=== PATIENT | male | born 1960 | race Caucasian/White ===

== ENCOUNTER 2016-08-19 08:47 | Day surgery (SDC) | payer BC ==
[2016-08-19] VITALS (7 sets, daily range): BP systolic 117–141; BP diastolic 62–75
[~2016-08-19] VITALS: Ht 190.5 cm; Wt 104.3 kg
--- NOTE | 2016-08-19 06:26 | Anethesia Preoperative Eval ---
Anesthesia Pre-op PMH/ROS General Date of Evaluation: Aug 19, 2016 Time of Evaluation: 06:25 Anesthesiologist: jeremy Mallampati Score Class I : Soft palate, uvula, fauces, pillars visible Class II: Soft palate, uvula, fauces visible Class III: Soft palate, base of uvula visible Class IV: Only hard plate visible Mallampati Classification: Class II Surgeon: javier Diagnosis: abdominal pain Surgical Procedure: egd/colonoscopy Anesthesia History: none Family History: no anesthesia problems Allergies: Coded Allergies: No Known Allergies (Unverified , 08/18/16) Medications: see eMAR Past Medical History Gastrointestinal/Genitourinary: Reports: GERD Endocrine: Reports: DM, hypothyroidism Anesthesia Pre-op A/P Risk Assessment & Plan Assessment: abdominal pain Plan: egd/colonoscopy Status Change Before Surgery: No Pre-Antibiotics Drug: VINICIUS Sarkar Aug 19, 2016 06:26
[~2016-08-19 08:47] MED LIST: LR 1000ml 1,000 ML IV SCH
[2016-08-19] MEDS ORDERED: Lidocaine 1% MPF 10mg/ml 5ml ONE (08:48)
[2016-08-19] MEDS ORDERED: LR 1000ml ONE (08:48)
[2016-08-19] MEDS ORDERED: Propofol 10mg/ml 20ml IV ONE (08:48)
[2016-08-19] MEDS ORDERED: LEVOTHYROXINE200 MC1 ORAL (09:22)
[2016-08-19] MEDS ORDERED: METFORMIN HCL1000 M1 ORAL (09:22)
[2016-08-19] MEDS ORDERED: GLIMEPIRIDE4 MG ORAL (09:22)
[2016-08-19] MEDS ORDERED: RAMIPRIL5 MG ORAL (09:22)
[2016-08-19] MEDS ORDERED: PROBIOTIC1 EAC2 PO (09:22)
[2016-08-19] MEDS ORDERED: COLACE100 MG ORAL (09:22)
[2016-08-19] MEDS ORDERED: VITAMIN D400 INTLU ORAL (09:22)
[2016-08-19] MEDS ORDERED: ATORVASTATIN CA20 MG ORAL (09:28)
[2016-08-19] MEDS ORDERED: ATENOLOL50 MG ORAL (09:29)
[2016-08-19] MEDS ORDERED: LANTUS SOL100 UNIT/1 SUBQ (09:56)
[2016-08-19] MEDS ORDERED: HUMALOG100 UNIT/3 SUBQ (09:56)
--- NOTE | 2016-08-19 10:17 | Short Stay Surgery H&P ---
History of Present Illness History of Present Illness Chief Complaint Vomiting, abdominal pains, screening colon. HPI Luis Alfredo Mazariegos is a 55 year old male who was admitted on for Abdominal Pain/vomiting and colon screening Patient History Allergies: Coded Allergies: No Known Allergies (Unverified , 08/18/16) PAST MEDICAL HISTORY: (1) Diabetes (2) Hyperlipidemia (3) Hypothyroidism Past Surgeries: Social History: Medication History Scheduled Atenolol* (Tenormin*), 50 MG ORAL DAILY, (Reported) Atorvastatin Calcium* (Atorvastatin Calcium*), 10 MG ORAL BEDTIME, (Reported) Docusate Sodium* (Colace*), 200 MG ORAL TWICE A DAY, (Reported) Glimepiride* (Glimepiride*), 4 MG ORAL BIDAC, (Reported) Insulin Glargine (Lantus), 50 SUBQ BEDTIME, (Reported) Insulin Lispro (Humalog), 15 SUBQ DA, (Reported) Lactobacillus Acidophilus (Probiotic), 1 EACH PO DA, (Reported) Levothyroxine Sodium (Levothyroxine Sodium), 200 MCG ORAL DAILY, (Reported) Metformin Hcl* (Metformin Hcl*), 1,000 MG ORAL BID, (Reported) Ramipril* (Ramipril*), 5 MG ORAL DAILY, (Reported) Vitamin D (Vitamin D3), 3,000 UNITS ORAL DAILY, (Reported) Review of Systems Cardiovascular: Reports: hypertension, no symptoms Respiratory: Reports: no symptoms Skeletal: Reports: no symptoms Gastrointestinal: Reports: gastro esophageal reflux disease Genitourinary: Reports: no symptoms Neurologic: Reports: no symptoms Endocrine: Reports: thyroid Hematologic: Reports: no symptoms Physical Exam Vital Signs Last Vital Signs Date Time Temp Pulse Resp B/P Pulse Ox O2 Delivery O2 Flow Rate FiO2 08/19/16 09:24 98.1 79 20 139/74 96 Room Air Skin: normal HENT: normal Heart: normal Lungs: normal Abdomen: abnormal Extremities: normal Genitourinary: normal Plan Plan of Care Upper and lower GI endoscopy Preop Interventions None. Summary of Findings See the reports. Final Diagnosis: Attestation Are the patient's medical conditions optimized for surgery? Attestation Response: yes KYLE CULP Aug 19, 2016 10:17
--- NOTE | 2016-08-19 10:18 | Pre-Procedure Note/Attestation ---
Pre-Procedure Note/Attestation Complete Prior to Procedure Planned Procedure: left Procedure Narrative: Endoscopic examination of the upper and the lower GI tract. Indications for Procedure Pre-Operative Diagnosis: R/O gastritis/peptic ulcer/tumors. Attestation I attest that I discussed the nature of the procedure; its benefits; risks and complications; and alternatives (and the risks and benefits of such alternatives ), prior to the procedure, with the patient (or the patient's legal sales representative trainee). I attest that, if there was a reasonable possibility of needing a blood transfusion, the patient (or the patient's legal sales representative trainee) was given the [place] [facility] [employer] [facility] standardized written summary, pursuant to the [place] Blood Safety Act ([place] Health and Safety Code # 1645, as amended). I attest that I re-evaluated the patient just prior to the surgery and that there has been no change in the patient's H&P, except as documented below: ROBBISAID Aug 19, 2016 10:18
[2016-08-19] MEDS ORDERED: LR 1000ml 1,000 ML IVLG SCH (10:57)
[2016-08-19] MEDS ORDERED: Atropine Inj 1mg/10ml Syr IV PRN (11:00)
[2016-08-19] MEDS ORDERED: Hydromorphone 0.5mg/0.5ml inj IVP PRN (11:00)
[2016-08-19] MEDS ORDERED: DiphenhydrAMINE 50mg/ml Inj IVP PRN (11:00)
[2016-08-19] MEDS ORDERED: Midazolam 2mg/2ml Inj IVP PRN (11:00)
--- NOTE | 2016-08-19 11:14 | Immediate Post-Op Evaluation ---
Immediate Post-Op Evalulation Immediate Post-Op Evalulation Procedure: egd/colonoscopy Date of Evaluation: Aug 19, 2016 Time of Evaluation: 11:35 IV Fluids: [id number] Blood Products: none Estimated Blood Loss: negligible Blood Pressure Systolic: 130 Blood Pressure Diastolic: 62 Pulse Rate: 68 Respiratory Rate: 18 O2 Sat by Pulse Oximetry: 97 Temperature (Fahrenheit): 97.9 Pain Score (1-10): 0 Nausea: No Vomiting: No Complications none Patient Status: awake, reacts, patent Hydration Status: adequate Drug: VINICIUS Sarkar Aug 19, 2016 11:14
--- NOTE | 2016-08-19 11:21 | Endoscopy Procedure Note ---
Endoscopy Procedure Note Indication for Procedure: Nausea and abdominal pains/screening colon Procedures Performed: EGD - small hiatal hernia and short segment Garrido's Esophagus biopsied, otherwise normal upper GI endoscopy., colonoscopy - Difficult colonoscopy with high redundancy of colon and extremely poor prep. 1/ 2 Cm pendunculated polyp found in proximal ascending colon that removed by hot snare totally. Specimen: yes Pt Tolerated Procedure Well: Yes Estimated Blood Loss: none Anesthesiologist: Dr. Justus Gonzales Anesthesia: moderate sedation Medication Given: see anesthesia record Implant(s) used?: No 50 yrs or older w/o bx or poly: Yes 10yrs. F/U not recommended: Yes 10 yrs. F/U needed: Yes <3yrs. since last colonoscopy: No Med reason:<3 yrs.: System Reason:<3 yrs.: Last colonoscopy >= to 3yrs: Yes KYLE CULP Aug 19, 2016 11:21
--- NOTE | 2016-08-19 11:22 | Discharge Instructions ---
Discharge Instructions Discharge Instructions Follow up with: See the docotor in office after 2 weeks. For Congestive Heart Failure Reminder Report to your physician any weight gain of 5 pounds or more in one week. ROBBI,KYLE Aug 19, 2016 11:22
--- NOTE | 2016-08-19 11:40 | 48 Hour Post Anesthesia Eval ---
Post Anesthesia Evaluation Procedure: egd/colonoscopy Date of Evaluation: Aug 19, 2016 Time of Evaluation: 11:38 Blood Pressure Systolic: 130 0: 62 Pulse Rate: 63 Respiratory Rate: 18 Temperature (Fahrenheit): 97.9 O2 Sat by Pulse Oximetry: 100 Airway: patent Nausea: No Vomiting: No Pain Intensity: 0 Hydration Status: adequate Cardiopulmonary Status: stable Mental Status/LOC: patient returned to baseline Post-Anesthesia Complications: none Follow-up care needed: N/A VINICIUS GARCIA Aug 19, 2016 11:40
--- NOTE | 2016-08-19 19:00 | Operative Note - Dictated ---
DATE OF OPERATION: 08/19/2016 PROCEDURE: Esophagogastroduodenoscopy with biopsy. PREOPERATIVE DIAGNOSES: 1. Abdominal pain. 2. History of nausea and vomiting. POSTOPERATIVE DIAGNOSES: 1. Small hiatal hernia. 2. Evidence of Garrido's esophagus. Multiple biopsy was done from the lower esophagus at the Garrido junction. Otherwise, normal upper gastrointestinal endoscopy. MEDICATIONS USED: Per Dr. Gonzales. INSTRUMENT: GIF Olympus upper gastrointestinal video endoscope. DESCRIPTION OF PROCEDURE: The patient after arriving endoscopy unit, was told about risks and benefits of the procedure, which he accepted and signed the informed consent. At this time, he was put on the left lateral decubitus position. After adequate IV sedation, the scope was gently passed through the cricopharyngeal area, was lodged into the upper esophagus, and gradually advanced towards gastroesophageal junction. The entire length of the esophagus was normal, however upon reaching towards the gastroesophageal junction, there was seen a short-segment Garrido's mucosa that they were biopsied in two locations. There was also evidence of a small hiatal hernia as well. At this time, the scope was advanced into the stomach. Gastric cavity was distended with insufflation of air. There was found only minimal amount of bile collected in the stomach consistent with duodenal gastric bile reflux. The rest of the stomach, however, looked completely normal without any ulcers or tumors or polyps. Subsequently, the scope was passed through the body of the stomach into the antrum and from there into the pylorus. The first and second portion of duodenum were found to be normal. At this point, the scope was pulled out and the procedure was terminated. The patient tolerated the procedure well. Said Serge Gilliland DR: YORDY JOB#: [id number] CC:
--- NOTE | 2016-08-19 19:15 | Operative Note - Dictated ---
DATE OF OPERATION: 08/19/2016 PROCEDURE: Total colonoscopy with polypectomy. PREOPERATIVE DIAGNOSES: 1. Abdominal pain. 2. Screening colonoscopy. POSTOPERATIVE DIAGNOSES: 1. Extremely difficult colonoscopic examination due to highly redundant left colon and poor colon cleanup. 2. Finding of half a centimeter pedunculated benign-looking polypoid lesion over the proximal ascending colon, which was removed with hot snare completely and sent to the pathology lab. It looked benign consistent with possible adenomatous polyp. MEDICATION USED: Per Dr. Gonzales, anesthesiologist. INSTRUMENT: GIF Olympus videocolonoscope. DESCRIPTION OF PROCEDURE: The patient after arriving endoscopy unit, was told about risks and benefits of the procedure, which he accepted and signed the informed consent. At this time, he was put on the left lateral decubitus position. After adequate IV sedation, the scope was gently passed through the anal area and careful examination of this section did not reveal any major hemorrhoids. The rectum was also free of any abnormality. At this point, the scope was gradually advanced towards highly redundant left colon, which was filled with liquidy stool along the colon signifying lack of adequate cleanup. This made the examination difficult. However after spending a significant amount of time, the scope was gradually reached towards the splenic flexure. From there, it was guided into the transverse colon, which was again filled with liquidy stools. Finally, scope reached to hepatic flexure and guided into the right colon all the way to the base of the cecum. An incidental finding was evidence of half a centimeter benign-looking pedunculated polypoid lesion over the proximal ascending colon, approximately couple of centimeters above the ileocecal valve. At this point, it was grabbed with a hot snare and totally removed in different pieces and sent to the laboratory. The site of polypectomy looked normal and there was no bleeding. At this point, within 8 minutes, the scope was gradually pulled out and re-evaluation of the colon did not reveal any other major pathology though possibility of existence of diminutive polypoid lesion still remains as the colon cleanup as I mentioned was not completely satisfactory. The patient tolerated the procedure well and left the endoscopy room in a good condition. Said Serge Gilliland DR: YORDY JOB#: [id number] CC:
== END 2016-08-19 12:25 | disposition home or self-care (01) ==
LOC: GAS 08:47
DX: Z12.11 Encounter for screening for malignant neoplasm of colon (principal); D12.2 Benign neoplasm of ascending colon; Q43.8 Other specified congenital malformations of intestine; K29.50 Unspecified chronic gastritis without bleeding; R11.2 Nausea with vomiting, unspecified; K44.9 Diaphragmatic hernia without obstruction or gangrene; K22.70 Barrett's esophagus without dysplasia; I10 Essential (primary) hypertension; E11.9 Type 2 diabetes mellitus without complications; Z79.4 Long term (current) use of insulin; Z79.84 Long term (current) use of oral hypoglycemic drugs; E78.5 Hyperlipidemia, unspecified; E03.9 Hypothyroidism, unspecified; Z79.899 Other long term (current) drug therapy
CPT/HCPCS: 43239; 45385; 82962; J2704; J7120; 94003; 94150